=== PATIENT | male | born 1950 | race Caucasian/White ===

== ENCOUNTER 2021-06-13 01:13 | Emergency (ER) | payer BC, MEDICARE, OTHER ==
[2021-06-13] MEDS ORDERED: Lidocaine 2% HCl 11 ML Jelly Filled Syringe TOP ONE ×2 (01:40→02:40)
[2021-06-13 02:25] LABS: ANION GAP 18.5 meq/L (7-15)
[2021-06-13 02:36] LABS: PTT,PARTIAL THROMBOPLSTIN TIME 36.6 SEC (23.6-29.8)
[2021-06-13] MEDS ORDERED: Lidocaine 2% HCl 11 ML Jelly Filled Syringe ONE (02:40)
== END 2021-06-13 03:28 ==
LOC: LL.ED 01:13
DX: N40.1 Benign prostatic hyperplasia with lower urinary tract symptoms (principal); R33.8 Other retention of urine; N17.9 Acute kidney failure, unspecified; Z79.01 Long term (current) use of anticoagulants
CPT/HCPCS: 36415; 51702; 80053; 85025; 85610; 85730; 99284; 99284-25; A9270-GY